=== PATIENT | male | born 1965 | race African-American/Black ===

== ENCOUNTER 2020-09-19 14:22 | Outpatient (CLI) | payer BC, SELFPAY ==
--- NOTE | ~2020-09-19 | XR_ITS ---
XR finger 2nd LT min 2V DATE: 09/19/2020 14:53 INDICATION: Subcutaneous mass for 10 years TECHNIQUE: 4 views COMPARISON: None FINDINGS: There is a 4 mm bony exostosis of the medial aspect of the distal shaft of the proximal pha lanx, with overlying soft tissue swelling.. No fracture, dislocation, periosteal reaction or bone destruction. IMPRESSION: Proximal phalanx exostosis Reviewed, dictated and finalized at location B. [employer] IMPRESSION: Proximal phalanx exostosis
== END 2020-09-19 14:23 | disposition home or self-care (01) ==
LOC: ANHIMG 14:31
PROVIDERS: PCP Internal Medicine; Visit Provider Plastic Surgery
DX: R22.32 Localized swelling, mass and lump, left upper limb (principal); M89.9 Disorder of bone, unspecified
CPT/HCPCS: 73140

== ENCOUNTER 2021-09-05 04:13 | Emergency (ER) | payer OTHER, SELFPAY ==
[2021-09-05 04:16] VITALS: BP 153/90; PULSE 71; RESP 16; TEMP 36.4; O2SAT 100
--- NOTE | 2021-09-05 04:49 | ED.LOWEXIN ---
HPI - Extremity Injury (Lower) General Chief Complaint: Extremity Injury, Lower Stated Complaint: L hip pain x 1 week Source: patient Mode of arrival: ambulatory Limitations: no limitations History of Present Illness HPI Narrative: Patient is a 56-year-old male complaining of left hip pain, 8 out of 10, dull, aching, radiating to left lower extremity, worse with walking and movement that started approximately 1 week ago. Patient states that he saw his primary care physician 1 week ago, had an x-ray done and was told it was normal. Patient was given pain medications then. Patient states that he is not any better. Patient denies any injury to the area. Patient denies any weakness, numbness, incontinence, urinary symptoms, fever or chills. Related Data Allergies Allergy/AdvReac Type Severity Reaction Status Date / Time No Known Allergies Allergy Unverified 09/05/21 04:41 Review of Systems Review of Systems: All systems reviewed & are unremarkable except as noted in HPI and below Constitutional: Constitutional: Denies body ache(s), Denies chills, Denies excessive sweating, Denies fatigue, Denies fever(s), Denies headache(s), Denies lethargy, Denies malaise, Denies weakness and Denies weight loss Eyes: Eyes: Denies blurry vision, Denies change in vision and Denies loss of vision ENT: Denies dizziness, Denies ear discharge, Denies headache(s), Denies lip swelling, Denies epistaxis, Denies nasal congestion, Denies neck pain, Denies throat swelling and Denies tongue swelling Cardiovascular: Cardiovascular: Denies chest pain, Denies chest pain at rest, Denies chest pain with activity, Denies diaphoresis, Denies rapid heart rate, Denies edema, Denies irregular heart rhythm, Denies lightheadedness, Denies palpitations, Denies dyspnea and Denies dyspnea on exertion Respiratory: Respiratory: Denies chest congestion, Denies cough, Denies hemoptysis, Denies dyspnea and Denies dyspnea on exertion Gastrointestinal: Gastrointestinal: Denies abdominal pain, Denies melena, Denies hematochezia, Denies diarrhea, Denies nausea, Denies vomiting and Denies hematemesis Musculoskeletal: Musculoskeletal: Denies abnormal gait, Denies deformity, Denies joint swelling, Denies limited range of motion, Denies neck pain and Denies numbness Neurologic: Denies Abnormal speech present, Denies abnormal gait, Denies confusion, Denies dizziness, Denies headache(s), Denies focal weakness, Denies loss of vision, Denies numbness, Denies Other visual disturbances, Denies Sensory deficit (Neuro) and Denies weakness Psychiatric: Psychiatric: Denies confusion, Denies depression, Denies auditory hallucinations, Denies homicidal ideation and Denies suicidal ideation Endocrine: Endocrine: Denies cold intolerance, Denies excessive sweating, Denies fatigue, Denies heat intolerance and Denies palpitations Hematologic/Lymphatic: Hematologic/Lymphatic: Denies easy bleeding and Denies easy bruising Allergic/Immunologic: Allergic/Immunologic: Denies lip swelling, Denies throat swelling and Denies tongue swelling PMFSH Comments Past medical history: None Family history: None Social history: Non-smoker no EtOH or drug use Exam Const: General: cooperative, healthy appearing, comfortable, no acute distress, well developed, alert and awake; No confusion Orientation/consciousness: oriented to person, oriented to place, oriented to time, patient oriented x3 and No confusion Limitations: no limitations HENMT: Head: normal to inspection, normocephalic and atraumatic Ears: hearing grossly normal bilaterally, TM normal on the right and TM normal on the left General nose exam: Normal external nose present, Normal nares present and No nasal discharge present Face and sinus: normal facial exam Mouth: Yes Normal oral and palatal mucosa present, Yes lip normal, Yes tongue normal and Yes oropharynx normal Throat: posterior oropharynx normal, tonsils normal and uvula midline Eyes: General: appea
[2021-09-05] MEDS: CYCLOBENZAPRINE HCL 10 MG TABLET PO (05:03)
[2021-09-05] MEDS: KETOROLAC 30 MG/ML VIAL (*BKC) IM (05:04)
[2021-09-05 05:21] VITALS: BP 130/86; PULSE 69; RESP 18; O2SAT 100
== END 2021-09-05 05:22 | disposition home or self-care (01) ==
PROVIDERS: Emergency Provider Emergency Medicine; PCP Internal Medicine
DX: M54.32 Sciatica, left side (principal)
CPT/HCPCS: 96372; 99284; A9270; J1100; J1885

== ENCOUNTER 2021-09-12 22:25 | Emergency (ER) | payer OTHER, SELFPAY ==
[2021-09-12 22:30] VITALS: BP 131/84; PULSE 90; RESP 18; TEMP 36.6; O2SAT 98
--- NOTE | 2021-09-12 22:57 | ED.GENADULT ---
HPI - General Adult General Chief complaint: Extremity Problem,Nontraumatic Stated complaint: L LEG PAIN FOR WEEKS Time Seen by Provider: 09/12/21 22:35 History of Present Illness HPI narrative: 56-year-old male presents emergency department for evaluation of persistent sciatica symptoms. Patient states for the last 3 weeks he has had left-sided hip pain. Patient was evaluated emergency department a few days ago and was provided with cyclobenzaprine and a Medrol Dosepak. Patient does not describe taking the full Medrol Dosepak. Patient denies any falls. Patient states he does have intermittent numbness of the left leg. Patient is neurovascularly intact and has no current numbness of the left leg. Patient denies any difficulty starting urination and denies any numbness when wiping. Patient also denies any incontinence to stool. Patient did attempt to get a follow-up with his primary care physician but states that will not occur for a month. Patient did seek follow-up with a new physician and that will occur on September 18. Related Data Allergies Allergy/AdvReac Type Severity Reaction Status Date / Time No Known Allergies Allergy Verified 09/12/21 22:39 Review of Systems Review of Systems: CONSTITUTIONAL: Denies fever, chills, or sweats. EYES: Denies visual changes, redness, or discharge. ENT: Denies rhinorrhea, congestion, sore throat, or otalgia. CARDIOVASCULAR: Denies chest pain, palpitations, or edema. RESPIRATORY: Denies cough or dyspnea. GASTROINTESTINAL: Denies abdominal pain, nausea, vomiting, or diarrhea. GENITOURINARY: Denies dysuria or hematuria. SKIN: Denies rash or itching. MUSCULOSKELETAL: Left hip pain that radiates down his left leg to his knee. NEUROLOGIC: Reports intermittent numbness of left leg. PSYCHIATRIC: Denies anxiety or depression. Exam Narrative: APPEARANCE: Well appearing, no pain in distress, well-nourished. HEAD: normocephalic, atraumatic. NECK: Supple. No adenopathy, no masses. RESPIRATORY: Airway patent, respirations nonlabored. Clear to auscultation bilaterally, no rales, rhonchi, wheezing. CARDIOVASCULAR: Regular rate and rhythm without murmurs rubs or gallops. MUSCULOSKELETAL: Moves all extremities. Strength/ROM intact, No edema, No calf tenderness. NEURO: Alert. Cranial nerves II through XII intact. Good gait. Good coordination. Neurovascular intact to both legs SKIN: Warm, dry. Normal Color PSYCHIATRIC: Normal affect/mood. Course Vital Signs Vital signs: Vital Signs Temperature 97.9 F 09/12/21 22:30 Pulse Rate 90 09/12/21 22:30 Respiratory Rate 18 09/12/21 22:30 Blood Pressure 131/84 09/12/21 22:30 Pulse Oximetry 98 09/12/21 22:30 Temperature 97.9 F 09/12/21 22:30 Pulse Rate 90 09/12/21 22:30 Respiratory Rate 18 09/12/21 22:30 Blood Pressure 131/84 09/12/21 22:30 Pulse Oximetry 98 09/12/21 22:30 Medical Decision Making MDM Narrative Medical decision making narrative: Patient is currently neurovascular intact. Patient will be treated with a Medrol Dosepak. Patient was encouraged to have close follow-up with his new primary care physician as scheduled on the . Vital Signs Vital Signs: Vital Signs Temperature 97.9 F 09/12/21 22:30 Pulse Rate 90 09/12/21 22:30 Respiratory Rate 18 09/12/21 22:30 Blood Pressure 131/84 09/12/21 22:30 Pulse Oximetry 98 09/12/21 22:30 Temperature 97.9 F 09/12/21 22:30 Pulse Rate 90 09/12/21 22:30 Respiratory Rate 18 09/12/21 22:30 Blood Pressure 131/84 09/12/21 22:30 Pulse Oximetry 98 09/12/21 22:30 Discharge Plan Discharge Clinical Impression: Sciatica Patient Disposition: Home, Self-Care Condition: Stable Instructions: Antibiotic Form, Sciatica (ED) Additional Instructions: Medrol Dosepak as directed, continue with cyclobenzaprine as needed. Tylenol and ibuprofen for pain control. Tramadol as needed for breakthrough pain. Continue to have close follo
[2021-09-12] MEDS: KETOROLAC 30 MG/ML VIAL (*BKC) IM (23:14)
== END 2021-09-12 23:18 | disposition home or self-care (01) ==
PROVIDERS: Emergency Provider Emergency Medicine; PCP Internal Medicine
DX: M54.30 Sciatica, unspecified side (principal)
CPT/HCPCS: 96372; 99283; J1885

== ENCOUNTER 2021-12-02 12:41 | Outpatient (CLI) | payer OTHER, SELFPAY ==
--- NOTE | ~2021-12-02 | MR_ITS ---
EXAMINATION: MR lumbar spine wo con DATE: 12/02/2021 13:56 INDICATION: Left-sided sciatica TECHNIQUE: Magnetic resonance imaging (MRI) of the lumbar spine was performed without intravenous con trast. Sequences included sagittal T2-weighted FSE, sagittal T2-weighted FS FSE, sagittal T1-weighted FSE, and axial T2-weighted FSE. COMPARISON: Lumbar spine CT dated 04/17/2019 FINDINGS: Alignment is normal. Vertebral body heights are normal. Normal marrow signal. Interval progression o f mild disc height loss at L2-L3, moderate disc height loss at L3-L4 and moderate to severe disc heig ht loss at L4-L5. There are annular fissures at each of these levels. The conus medullaris terminates at L1. There is normal signal in the caudal spinal cord. Paravertebral soft tissues are unremarkable . The following disc levels are specifically discussed: T12-L1: The disc does not extend beyond the endplate margin. There is mild bilateral facet joint oste oarthritis. There is no neural foraminal stenosis. There is no central canal stenosis. L1-L2: The disc does not extend beyond the endplate margin. There is mild hypertrophy of the ligament um flavum. There is mild bilateral facet joint osteoarthritis. There is no neural foraminal stenosis. There is no central canal stenosis. L2-L3: Moderate diffuse disc bulge. There is hypertrophy of the ligamentum flavum. There is altered l eft and mild to moderate right facet joint osteoarthritis. There is mild bilateral neural foraminal s tenosis. There is mild central canal stenosis. L3-L4: Moderate diffuse disc bulge with left foraminal zone annular fissure and disc extrusion with d isc material extending up to 5 mm cephalad to the level of the inferior endplate of L3. There is hype rtrophy of the ligamentum flavum. There is mild right and mild to moderate left facet joint osteoarth ritis. There is mild neural foraminal stenosis. There is no central canal stenosis. L4-L5: Moderate diffuse disc bulge with bilateral foraminal zone annular fissures and small disc extr usions with disc material extending a few millimeter cephalad to the level of the inferior endplates of L4. There is hypertrophy of the ligamentum flavum. There is mild to moderate bilateral facet joint osteoarthritis. There is moderate right and mild to moderate left neural foraminal stenosis. There i s mild central canal stenosis. L5-S1: The disc does not extend beyond the endplate margin. There is mild left and moderate right fac et joint osteoarthritis. There is mild right neural foraminal stenosis. There is no central canal germania nosis. IMPRESSION: 1. Interval progression of moderate lumbar spondylosis. Reviewed, dictated and finalized at location A.
== END 2021-12-02 12:42 | disposition home or self-care (01) ==
LOC: ANHIMG 12:42
PROVIDERS: PCP Internal Medicine; Visit Provider Internal Medicine
DX: M54.32 Sciatica, left side (principal); M54.16 Radiculopathy, lumbar region; M47.816 Spondylosis without myelopathy or radiculopathy, lumbar region
CPT/HCPCS: 72148

== ENCOUNTER 2023-06-09 15:29 | Outpatient (CLI) | payer BC, OTHER, SELFPAY ==
[2023-06-09 15:51] LABS: Basophils Percent Auto 0.5 % (0.2-1.2); Eosinophils Absolute Auto 0.1 K/mm3 (0-0.3); Eosinophils Percent Auto 2.5 % (0-4.4); Hematocrit 43.7 % (42.0-52.0); Hemoglobin 13.8 g/dL (14.0-18.0); Immature Granulocyte Absolute 0.01 K/mm3 (0.00-0.031); Immature Granulocyte Percent A 0.2 % (0-0.5); Lymphocytes Absolute Auto 1.91 K/mm3 (0.9-3.2); Lymphocytes Percent Auto 46.9 % (18.3-44.2); Mean Corpuscular HGB Conc 31.6 g/dl (32-36); Mean Corpuscular Hemoglobin 28.8 pg (26-34); Mean Platelet Volume 10.2 fl (7.4-10.4); Monocytes Absolute Auto 0.5 K/mm3 (0.1-0.6); Monocytes Percent Auto 11.5 % (2.6-8.5); Neutrophils Absolute Auto 1.6 K/mm3 (1.3-6.7); Neutrophils Percent Auto 38.4 % (45.5-73.1); Platelet Count Result 182 k/mm3 (150-375); Red Cell Distribution Width 13.8 % (11.5-14.5); White Blood Count 4.1 K/mm3 (4.5-10.0)
[2023-06-09 17:35] LABS: Hemoglobin A1C 5.7 % (<5.7)
[2023-06-09 17:51] LABS: Vitamin D 25 Hydroxy 22.1 ng/mL
[2023-06-09 18:44] LABS: Alanine Aminotransferase 34 U/L (6-50); Albumin Level 4.1 g/dL (3.5-5.1); Alkaline Phosphatase 103 U/L (38-126); Anion Gap 7 mmol/L (8-16); Aspartate Amino Transferase 33 U/L (17-59); Bilirubin,Total 0.7 mg/dL (0.2-1.3); Blood Urea Nitrogen 15 mg/dL (9-20); Calcium 8.7 mg/dL (8.4-10.2); Carbon Dioxide 24 mmol/L (22-30); Chloride 105 mmol/L (98-107); Cholesterol 188 mg/dL (0-200); Estimated Glomerular Filt Rate > 60; Glucose 78 mg/dL (65-110); HDL Direct 61 mg/dL; Potassium 4.2 mmol/L (3.4-5.0); Sodium 136 mmol/L (137-145); Triglycerides 102 mg/dL (<150)
[2023-06-09 18:55] LABS: LDL Cholesterol Direct 89 mg/dL
[2023-06-10 17:38] LABS: Prostate Specific Antigen 1.1 ng/mL (< OR = 4.0)
== END 2023-06-09 15:30 | disposition home or self-care (01) ==
LOC: ANHLAB 15:30
PROVIDERS: PCP Nurse Practitioner Family; Visit Provider Nurse Practitioner Family
DX: R20.2 Paresthesia of skin (principal); Z13.228 Encounter for screening for other metabolic disorders; Z13.220 Encounter for screening for lipoid disorders; Z12.5 Encounter for screening for malignant neoplasm of prostate; Z13.21 Encounter for screening for nutritional disorder; Z13.1 Encounter for screening for diabetes mellitus; Z13.0 Encounter for screening for diseases of the blood and blood-forming organs and certain disorders involving the immune mechanism; Z13.29 Encounter for screening for other suspected endocrine disorder
CPT/HCPCS: 36415; 80053; 80061; 82306; 82607; 83036; 84153; 84443; 85025; G0103

== ENCOUNTER 2025-01-19 08:26 | Outpatient (CLI) | payer BC, SELFPAY ==
--- NOTE | ~2025-01-19 | XR_ITS ---
Right Shoulder Technique: AP and scapular Y views were obtained. Clinical History: Pain Findings: No fracture or dislocation is seen. Osseous alignment is anatomic. The glenohumeral and acr omioclavicular joint spaces are preserved. Soft tissues are unremarkable. Impression: Unremarkable right shoulder radiographs. Reviewed, dictated and finalized at [facility]. Impression: Unremarkable right shoulder radiographs.
--- OUTSIDE RECORDS SUMMARY | 2025-01-19 08:29 | XMS_ITS | Clinical Summary ---
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 Gender Identity Not on file Sexual Orientation Not on file Plan of Treatment Health Maintenance Due Date Last Done Comments Hepatitis C Virus (HCV) Screening 1965 TdaP Immunization 1965 Colonoscopy 01/17/2009 Colorectal Cancer Screening 01/17/2009 Cologuard 01/17/2014 Immunochemical Fecal Occult Blood 01/17/2014 Pneumococcal Immunization (5 0+ years) (1 of 1 - PCV) 01/17/2014 Zoster Immunization (1 of 2) 01/17/2014 PSA Discussion 01/17/2019 Influenza Immunization (#1) 2024 SARS-COV-2 Immunization ( - 2023-25 season) 2024 Respiratory Syncytial Virus (RSV) Immunization (Adult) (1 - 1-dose 75+ series) 01/17/2039 Hepatitis B Immunization Aged Out No longer eligible based on patient's age to complete this topic Meningococcal Immunization (ACWY) Aged Out No longer eligible based on patient's age to complete this topic Pneumococcal Immunization Combined Aged Out No longer eligible based on patient's age to complete this topic Rotavirus Immunization Aged Out No lo nger eligible based on patient's age to complete this topic Insurance [employer] on file
--- OUTSIDE RECORDS SUMMARY | 2025-01-19 08:29 | XMS_ITS | Referral Summary ---
Author Organization [facility] Address [facility] [place] [address] Care Team Providers Care Platform Consultant Name Role Phone No, Physician Primary Care Provider [phone] Allergies No known active allergies Medications cyclobenzaprine (FLEXERIL) 10 mg tablet Take 1 tablet (10 mg total) by mouth 2 (two) times a day as needed for muscle spasms 20 tablet 01/12/2022 Active Social History Tobacco Use Types Packs/Day Years Used Date Smoking Tobacco: Never Assessed Personal Safety Answer Date Recorded Getting School Help Needed Not on file 11/27 Sex and Gender Information Value Date Recorded Sex Assigned at Not on file 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 Gender Identity Not on file Sexual Orientation Not on file Last Filed Vital Signs Vital Sign Reading Time Taken Comments Blood Pressure 130/81 01/12/2022 8:13 PM CDT Pulse 78 01/12/2022 8:13 PM CDT Temperature 36.9 C (98.4 F) 01/12/2022 6:58 PM CDT Respiratory Rate 18 01/12/2022 8:13 PM CDT Oxygen Saturation 97% 01/12/2022 8:13 PM CDT Inhaled Oxygen Concentration - - Weight 87.1 kg (192 lb 0.3 oz) 01/12/2022 4:42 P M CDT Height 175.3 cm (5' 9 ) 01/12/2022 4:42 PM CDT Body Mass Index 28.36 01/12/2022 4:42 PM CDT Plan of Treatment Not on file Insurance [employer] Care Teams Platform Consultant Relationship Specialty Start Date End Date No, Physician PCP - General 01/12/22
--- OUTSIDE RECORDS SUMMARY | 2025-01-19 08:30 | XMS_ITS | Clinical Summary ---
Author Organization [facility] Address [facility] [place] [address] Care Team Providers Care Preflight Mechanic Name Role Phone Miguel Bourne DO Primary Care Provider [phone] Allergies No known active allergies Medications predniSONE 10 mg tablet prednisone 10 mg tablet TK 1 T PO TID X 7DAYS AND TK 1 T PO ONCE D X 7DAYS Active ibuprofen 800 MG tablet ibuprofen 800 mg tablet TAKE 1 TABLET BY MOUTH THREE TIMES DAILY. START AFTER MEDROL DOSEPAK Active HYDROcodone-lupe taminophen 7.5-325 MG tablet hydrocodone 7.5 mg-acetaminophen 325 mg tablet TAKE 1 TO 2 TABLETS BY MOUTH EVERY 4 TO 6 HOURS NEEDED FOR PAIN Active tamsulosin 0.4 MG Cap tamsulosin 0.4 mg capsule TAKE 1 CAPSULE BY MOUTH AT BEDTIME Active traMADol 50 MG tablet tramadol 50 mg tablet TAKE 1 TABLET BY MOUTH EVERY 4-6 HOURS NEEDED Active Social History Tobacco Use Types Packs/Day Years Used Date Smoking Tobacco: Never Smokeless Tobacco: Never Alcohol Use Standard Drinks/Week Comments Never 0 (1 standard drink = 0.6 oz pur e alcohol) Sex and Gender Information Value Date Recorded Sex Assigned at Not on file Legal Sex Male 6:00 PM CDT Gender Identity Not on file Sexual Orientation Not on file Last Filed Vital Signs Vital Sign Reading Time Taken Comments Blood Pressure 176/99 10/18/2021 6:30 PM NEWS COPY EDITOR Pulse 84 10/18/2021 6:30 PM NEWS COPY EDITOR Temperature 36.1 C (96.9 F) 10/18/2021 6:30 PM NEWS COPY EDITOR Respiratory Rate 16 10/18/2021 6:30 PM NEWS COPY EDITOR Oxygen Saturation 99% 10/18/2021 6:30 PM NEWS COPY EDITOR Inhaled Oxygen Concentration - - Weight 89.7 kg (197 lb 12 oz) 10/18/2021 6:30 PM NEWS COPY EDITOR Height 175.3 cm (5' 9 ) 10/18/2021 6:30 PM NEWS COPY EDITOR Body Mass Index 29.2 10/18/2021 6:30 PM NEWS COPY EDITOR Plan of Treatment Health Maintenance Due Date Last Done Comments Colorectal Cancer Screening Colonoscopy (10 Years) 1964 Annual Physical 01/17/1967 Hepatitis C 01/17/1982 DTaP, Tdap and Td Vaccines ( 1 - Tdap) 01/17/1983 Pneumococcal Vaccine: 50+ Years (1 of 1 - PCV) 01/17/2014 Zoster Vaccines (1 of 2) 01/17/2014 COVID-19 Vaccine (4 - 2023-2 5 season) 2024 08/19/2021, 01/04/2021, 12/07/2020 RSV Immunization or 60+ Years (1 - 1-dose 75+ series) 01/17/2039 Meningococcal B Vaccine Aged Out No l onger eligible based on patient's age to complete this topic Meningococcal Vaccine Aged Out No adri peng eligible based on patient's age to complete this topic RSV Immunizations Under 20 Months Aged Out No longer eligible b ased on patient's age to complete this topic Insurance Care Teams Preflight Mechanic Relationship Specialty Start Date End Date Miguel Bourne DO [address] [address] PCP - General INTERNAL MEDICINE 10/18/21
--- OUTSIDE RECORDS SUMMARY | 2025-01-19 08:30 | XMS_ITS | Clinical Summary ---
Author Organization [facility] [employer] Address [address] [place] [address] Care Team Providers Care Oral Surgeon Name Role Phone Unavailable Primary Care Provider Unavailabl e Source Comments [facility] [employer],non-owned Affiliates and Associated Physician Practices is amultiple site organization consisting of ambulatory clinics and hospital sitesin [place], [place], [place] and [place]. This disclosure is being madepursuant to the Care Everywhere program and may not contain all information available regarding this patient. Last updated 18.[facility] [employer] Allergies No known active allergies Medications * Be aware that medications may not be up to date on this document. Alwaysverify current medications with the patient. gabapentin (NEURONTIN) 100 MG capsule Take 1 (one) capsule by mouth 3 times daily 90 capsule 12/20/2021 Active naproxen (NAPROSYN) 500 MG tablet Take 1 (one) tablet by mouth 2 times daily 30 tablet 12/20/2021 Active methylPREDNISol one (MEDROL DOSEPAK) 4 MG tablet Take by mouth as directed Follow package insert dosing for six day supply. 21 tablet 12/20/2021 Active Social History Tobacco Use Types Packs/Day Years Used Date Smoking Tobacco: Never Smokeless Tobacco: Never Alcohol Use Standard Drinks/Week Comments Never 0 (1 standard drink = 0.6 oz pur e alcohol) Sex and Gender Information Value Date Recorded Sex Assigned at Not on file Legal Sex Male 7:17 PM CDT Gender Identity Not on file Sexual Orientation Not on file Last Filed Vital Signs Vital Sign Reading Time Taken Comments Blood Pressure 130/81 12/20/2021 10:46 PM CDT Pulse 80 12/20/2021 10:46 PM CDT Temperature 36.4 C (97.6 F) 12/20/2021 7:17 PM CDT Respiratory Rate 16 12/20/2021 10:46 PM CDT Oxygen Saturation 100% 12/20/2021 10:46 PM CDT Inhaled Oxygen Concentration - - Weight 86.2 kg (190 lb) 12/20/2021 7:17 PM CDT Height 175.3 cm (5' 9 ) 12/20/2021 7:17 PM CDT Body Mass Index 28.06 12/20/2021 7:17 PM CDT Plan of Treatment Health Maintenance Due Date Last Done Comments COLOGUARD (AGES 45-75) - COL ON CA SCREENING 1965 COLON MONITORING 1964 COLONOSCOPY - COLON CA SCREENING 1964 CT COLONOGRAPHY - COLON CA SCREENING 1965 Colorectal Cancer Screening 1965 FIT - COLON CA SCREENING 1965 FLEX SIG - COLON CA SCREENING 1965 LIPID TESTING 1965 HIV SCREENING 01/17/1979 HEPATITIS C SCREENING 01/13/1982 DTAP/TDAP/TD VACCINES (1 - Tdap) 01/17/1983 PNEUMOCOCCAL VACCINE 50+ (1 of 1 - PCV) 01/17/2014 ZOSTER VACCINE (1 of 2) 01/17/2014 COVID-19 VACCINE ( - 2023-2 5 season) 2024 DEPRESSION SCREENING 09/13/2024 INFLUENZA VACCINE (Season Ended) 2025 Respiratory Syncytial Virus (RSV) Vaccine Pt: or over 60 yrs (1 - 1-dose 75+ series) 01/17/2039 HEPATITIS B VACCINE Aged Out No longe r eligible based on patient's age to complete this topic HIB VACCINE Aged Out No longer eligi ble based on patient's age to complete this topic HPV VACCINE Aged Out No longer eligi ble based on patient's age to complete this topic MENINGOCOCCAL (Group B) VACC INE SHARED DECISION-MAKING Aged Out No longer eligibl e based on patient's age to complete this topic MENINGOCOCCAL GROUPS A/C/Y/W VACCINE Aged Out No longer eligible b ased on patient's age to complete this topic
--- OUTSIDE RECORDS SUMMARY | 2025-01-19 08:30 | XMS_ITS | Clinical Summary ---
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 Gender Identity Not on file Sexual Orientation [...] 01/12/2022 4:42 PM CDT Plan of Treatment Health Maintenance Due Date Last Done Comments Colon Cancer Screening-Colonoscopy 1965 Depression Screening 1965 Hepatitis C Screening 1965 Prostate Cancer Screening-PSA 1964 DTaP/Tdap/Td Vaccine (1 - Tdap) 01/17/1975 Hepatitis B Screening 01/17/1982 Regular Well Visit/Exam 18-64 01/17/1982 Zoster Vaccine (1 of 2) 01/17/2014 Covid-19 Vaccine (4 - 2023-2 5 season) 2024 08/19/2021, 01/04/2021, 12/07/2020 Influenza Vaccine (Season Ended) 2025 Pneumococcal vaccine <65 Aged Out No longer eligible based on patient's age to complete this topic Insurance Care Teams Conveyor Line Battery Charger Relationship Specialty Start Date End Date No, Physician PCP - General 01/12/22
== END 2025-01-19 08:27 | disposition home or self-care (01) ==
PROVIDERS: PCP Nurse Practitioner Family; Visit Provider Nurse Practitioner Family
DX: M25.511 Pain in right shoulder (principal)
CPT/HCPCS: 73030